=== PATIENT | female | born 1935 | race Caucasian/White ===

== ENCOUNTER 2020-05-04 08:55 | Outpatient (CLI) | payer MEDICARE, SELFPAY ==
[2020-05-04 09:17] LABS: Basophils Absolute Auto 0.1 K/mm3 (0.0-0.1); Basophils Percent Auto 0.9 % (0.2-1.2); Eosinophils Absolute Auto 0.1 K/mm3 (0-0.3); Eosinophils Percent Auto 1.6 % (0-4.4); Hematocrit 40.7 % (37.0-47.0); Hemoglobin 13.5 g/dL (12.0-15.0); Immature Granulocyte Absolute 0.01 K/mm3 (0.00-0.031); Immature Granulocyte Percent A 0.2 % (0-0.5); Lymphocytes Absolute Auto 1.86 K/mm3 (0.9-3.2); Lymphocytes Percent Auto 33.1 % (18.3-44.2); Mean Corpuscular HGB Conc 33.2 g/dl (32-36); Mean Corpuscular Hemoglobin 30.1 pg (26-34); Mean Corpuscular Volume 90.8 fl (80-100); Mean Platelet Volume 11.1 fl (7.4-10.4); Monocytes Absolute Auto 0.5 K/mm3 (0.1-0.6); Monocytes Percent Auto 8.4 % (2.6-8.5); Neutrophils Absolute Auto 3.1 K/mm3 (1.3-6.7); Neutrophils Percent Auto 55.8 % (45.5-73.1); Platelet Count Result 245 k/mm3 (150-375); Red Blood Count 4.48 M/mm3 (4.2-5.4); Red Cell Distribution Width 12.2 % (11.5-14.5); White Blood Count 5.6 K/mm3 (4.5-10.0)
[2020-05-04 09:34] LABS: Alanine Aminotransferase 23 U/L (4-35); Albumin Level 4.4 g/dL (3.5-5.1); Alkaline Phosphatase 79 U/L (38-126); Anion Gap 8 mmol/L (8-16); Aspartate Amino Transferase 33 U/L (14-36); Bilirubin,Total 0.5 mg/dL (0.2-1.3); Blood Urea Nitrogen 17 mg/dL (7-17); Calcium 9.7 mg/dL (8.4-10.2); Carbon Dioxide 30 mmol/L (22-30); Chloride 99 mmol/L (98-107); Cholesterol 166 mg/dL (0-200); Estimated Glomerular Filt Rate 53; Glucose 102 mg/dL (65-105); HDL Direct 70 mg/dL; Potassium 4.1 mmol/L (3.4-5.0); Sodium 137 mmol/L (137-145); Triglycerides 141 mg/dL (<150)
[2020-05-04 09:45] LABS: LDL Cholesterol Direct 71 mg/dL
== END 2020-05-04 08:56 | disposition home or self-care (01) ==
PROVIDERS: PCP Internal Medicine; Visit Provider Nurse Practitioner
DX: E78.00 Pure hypercholesterolemia, unspecified (principal); I10 Essential (primary) hypertension; E03.9 Hypothyroidism, unspecified
CPT/HCPCS: 36415; 80053; 80061; 84443; 85025

== ENCOUNTER 2020-06-20 09:31 | Outpatient (CLI) | payer MEDICARE, SELFPAY ==
[2020-06-20 10:00] LABS: Anion Gap 9 mmol/L (8-16); Blood Urea Nitrogen 17 mg/dL (7-17); Calcium 9.5 mg/dL (8.4-10.2); Carbon Dioxide 31 mmol/L (22-30); Chloride 102 mmol/L (98-107); Estimated Glomerular Filt Rate 60; Glucose 98 mg/dL (65-105); Potassium 3.9 mmol/L (3.4-5.0); Sodium 142 mmol/L (137-145)
== END 2020-06-20 09:32 | disposition home or self-care (01) ==
PROVIDERS: PCP Internal Medicine; Visit Provider Nurse Practitioner
DX: R94.4 Abnormal results of kidney function studies (principal)
CPT/HCPCS: 36415; 80048

== ENCOUNTER 2020-07-25 10:27 | Outpatient (CLI) | payer MEDICARE, SELFPAY ==
[2020-07-25 11:14] LABS: Anion Gap 7 mmol/L (8-16); Blood Urea Nitrogen 14 mg/dL (7-17); Calcium 9.4 mg/dL (8.4-10.2); Carbon Dioxide 30 mmol/L (22-30); Chloride 102 mmol/L (98-107); Estimated Glomerular Filt Rate 60; Glucose 116 mg/dL (65-105); Potassium 3.6 mmol/L (3.4-5.0); Sodium 139 mmol/L (137-145)
== END 2020-07-25 10:28 | disposition home or self-care (01) ==
LOC: ANHLAB 10:28
PROVIDERS: PCP Internal Medicine; Visit Provider Nurse Practitioner
DX: R94.4 Abnormal results of kidney function studies (principal)
CPT/HCPCS: 36415; 80048

== ENCOUNTER → 2020-10-28 05:23 | Outpatient (CLI) | payer MEDICARE, SELFPAY ==
[2020-10-28 19:34] LABS: SARS-CoV-2 RNA PCR Negative
== END ==
PROVIDERS: PCP Internal Medicine; Visit Provider Internal Medicine Gastroenterology
DX: Z01.812 Encounter for preprocedural laboratory examination (principal); Z20.822 Contact with and (suspected) exposure to COVID-19
CPT/HCPCS: C9803; U0003; U0005

== ENCOUNTER 2020-10-31 00:27 | Day surgery (SDC) | payer MEDICARE, SELFPAY ==
[2020-10-17 14:00] VITALS: BMI 25.7
[2020-10-31 08:58] VITALS: BP 148/71; PULSE 74; RESP 14; TEMP 36.4; O2SAT 96; BMI 25.6
[2020-10-31] MEDS: LACTATED RINGERS 1,000 ML 150 ML IV CONT (09:19)
--- NOTE | 2020-10-31 09:49 | WPDANESEPPF ---
Anes - Initial Pre Proc Eval Procedure: Operation Date: 10/31/20 10:00 Proposed Procedures p Esophagogastroduodenoscopy & Screening Colonoscopy - Deon Oswald MD Date/Time: 10/31/20 09:49 Surgeon: Deon Oswald MD Pre Op Diagnosis: Epigastric Pain, Neoplasm Screening Patient Data Age: 85 Gender: F Height: 5 ft 3 in Weight: 65.7 kg Last Vital Signs Temp 97.5 F L 10/31/20 08:58 Pulse 74 10/31/20 08:58 Resp 14 10/31/20 08:58 BP 148/71 H 10/31/20 08:58 Pulse Ox 96 10/31/20 08:58 Allergies Allergy/AdvReac Type Severity Reaction Status Date / Time cefdinir Allergy Unknown Unknown Verified 10/31/20 09:23 Home Medications Medication Instructions Recorded Confirmed Type acetaminophen 500 mg capsule 1,000 mg PO .QD cap 06/09/19 10/17/20 History aspirin 325 mg tablet 325 mg PO BID 06/09/19 10/17/20 History fluticasone propionate 50 2 spray NASAL DAILY PRN 06/09/19 10/17/20 History mcg/actuation nasal spray,suspension omega-3 fatty acids 500 mg PO DAILY 05/11/20 06/30/20 History levothyroxine 88 mcg tablet 88 mcg PO DAILY #90 tablet 05/22/20 10/17/20 Rx simvastatin 20 mg tablet 20 mg PO DAILY #90 tablet 05/22/20 10/17/20 Rx amlodipine 2.5 mg tablet 2.5 mg PO DAILY #90 tablet 07/25/20 10/17/20 Rx pantoprazole 20 mg tablet,delayed See Rx Instructions .ROUTE 08/24/20 10/17/20 Rx release .COMPLEX #90 tablet hydrochlorothiazide 25 mg tablet 25 mg PO DAILY #90 tablet 09/01/20 10/17/20 Rx sodium,potassium,mag sulfates 17.5 See Rx Instructions PO .COMPLEX 09/27/20 Rx gram-3.13 gram-1.6 gram oral soln #354 ml calcitriol 0.25 mcg capsule 0.25 mcg PO DAILY #90 cap 10/03/20 10/17/20 Rx Cbd BYMOUTH 10/17/20 History cetirizine [Zyrtec] 10 mg PO DAILY 10/17/20 10/17/20 History potassium mg 10/17/20 History Patient hx anesthesia problems: none Family hx anesthesia problems: none PMFSH Past Medical History Medical History (Updated 08/22/20 @ 13:51 by Ariana Carrera NP) HLD (hyperlipidemia) HTN (hypertension) Hypothyroidism Peripheral vascular disease Surgical History Surgical History (Updated 06/09/19 @ 08:21 by Sandy John CMA) Hx of cholecystectomy Family History Family History (Updated 06/09/19 @ 08:23 by Sandy John CMA) Father Family history of emphysema Sibling Hypertension Seizure disorder Mother Cerebrovascular accident Social History Social History Smoking status: Never smoker Alcohol intake: never Living arrangements: alone Gender identity (if verbalized by the patient): Female Spiritual care concerns: No Anes - Eval Final PreProcedure Day of Procedure 10/31/20 09:49 Patient weight: normal Heart: regular rate and rhythm Lungs: clear to auscultation Airway: Mallampati scale class II Neurological: alert and oriented Last oral intake: >/= 8 hours ASA classification: III Emergent: no Anesthetic plan: proceed Anesthesia type and monitoring: general GIVS and standard monitoring Informed Consent: The patient's anesthetic plan and its attendant risks and benefits were discussed with the patient/family/POA. Questions were solicited and answers provided to the satisfaction of the patient/family/POA.
--- NOTE | 2020-10-31 10:48 | PM.HPGS ---
History of Present Illness History of Present Illness Consent: Risks, benefits, and alternatives have been discussed and questions answered. Patient agrees to proceed with procedure. Chief complaint: Epigastric Pain, Neoplasm Screening Narrative: Clarissa Soliz is a 85 year old female with colon polyp in 2014, also dyspepsia and epigastric pain after eating Review of Systems Constitutional: Constitutional: Denies headache(s) and Denies weakness Eyes: Eyes: Denies blurry vision ENT: Reports Normal hearing present, Denies headache(s) and Denies neck pain Cardiovascular: Cardiovascular: Denies chest pain and Denies dyspnea Respiratory: Respiratory: Denies dyspnea Gastrointestinal: Gastrointestinal: Reports no additional gastrointestinal complaints Genitourinary: Genitourinary: Denies dysuria Musculoskeletal: Musculoskeletal: Denies neck pain Integumentary/Breasts: Skin/Breast: Denies dry skin Neurologic: Reports Normal hearing present, Denies headache(s) and Denies weakness Psychiatric: Psychiatric: Denies anxiety Endocrine: Endocrine: Denies change in body appearance Hematologic/Lymphatic: Hematologic/Lymphatic: Denies easy bleeding Allergic/Immunologic: Allergic/Immunologic: Denies urticaria PMF Past Medical History Medical History (Updated 08/22/20 @ 13:51 by Ariana Carrera NP) HLD (hyperlipidemia) HTN (hypertension) Hypothyroidism Peripheral vascular disease Surgical History Surgical History (Updated 06/09/19 @ 08:21 by Sandy John CMA) Hx of cholecystectomy Family History Family History (Updated 06/09/19 @ 08:23 by Sandy John CMA) Father Family history of emphysema Sibling Hypertension Seizure disorder Mother Cerebrovascular accident Social History Social History Smoking status: Never smoker Alcohol intake: never Living arrangements: alone Gender identity (if verbalized by the patient): Female Spiritual care concerns: No Meds Home Medications and Allergies Home Medications Medication Instructions Recorded Confirmed Type acetaminophen 500 mg capsule 1,000 mg PO .QD cap 06/09/19 10/17/20 History aspirin 325 mg tablet 325 mg PO BID 06/09/19 10/17/20 History fluticasone propionate 50 2 spray NASAL DAILY PRN 06/09/19 10/17/20 History mcg/actuation nasal spray,suspension omega-3 fatty acids 500 mg PO DAILY 05/11/20 06/30/20 History levothyroxine 88 mcg tablet 88 mcg PO DAILY #90 tablet 05/22/20 10/17/20 Rx simvastatin 20 mg tablet 20 mg PO DAILY #90 tablet 05/22/20 10/17/20 Rx amlodipine 2.5 mg tablet 2.5 mg PO DAILY #90 tablet 07/25/20 10/17/20 Rx pantoprazole 20 mg tablet,delayed See Rx Instructions .ROUTE 08/24/20 10/17/20 Rx release .COMPLEX #90 tablet hydrochlorothiazide 25 mg tablet 25 mg PO DAILY #90 tablet 09/01/20 10/17/20 Rx sodium,potassium,mag sulfates 17.5 See Rx Instructions PO .COMPLEX 09/27/20 Rx gram-3.13 gram-1.6 gram oral soln #354 ml calcitriol 0.25 mcg capsule 0.25 mcg PO DAILY #90 cap 10/03/20 10/17/20 Rx Cbd BYMOUTH 10/17/20 History cetirizine [Zyrtec] 10 mg PO DAILY 10/17/20 10/17/20 History potassium mg 10/17/20 History Allergies Allergy/AdvReac Type Severity Reaction Status Date / Time cefdinir Allergy Unknown Unknown Verified 10/31/20 09:23 Vital Signs Vital Signs - 24 hr 10/31/20 08:58 Temperature 97.5 F L Pulse Rate 74 Respiratory Rate 14 Blood Pressure 148/71 H Pulse Oximetry 96 Exam Const: General: comfortable and no acute distress HENMT: General nose exam: Normal nares present Eyes: General: appearance normal, both eyes and all related structures Neck: Neck: no JVD Resp: Auscultation: clear to auscultation bilaterally Cardio: Rate: regular rate Rhythm: regular rhythm GI: Inspection: non-distended GI Palp: Yes Soft to palpation Skin: General skin exam: normal color Neuro: General: gait normal Speech: normal speech Extrem: General: normal to inspection Psych:
[2020-10-31] MEDS: BENZOCAINE (*SP) 60 ML SPRAY CAN (HURRICAINE) 1 SPRAY MUCOUS MEM (10:51)
[2020-10-31 11:20] VITALS: BP 119/60; PULSE 67; RESP 22; O2SAT 100
[2020-10-31 11:30] VITALS: BP 133/73; PULSE 71; RESP 20; O2SAT 100
[2020-10-31 11:40] VITALS: BP 129/61; PULSE 70; RESP 20; O2SAT 100
== END 2020-10-31 12:05 | disposition home or self-care (01) ==
PROVIDERS: PCP Internal Medicine; Visit Provider Internal Medicine Gastroenterology
PROC: 0DJ08ZZ Inspection of Upper Intestinal Tract, Via Natural or Artificial Opening Endoscopic (ICD-10-PCS; CPT 43235; principal; 2020-10-31 10:00)
DX: Z12.11 Encounter for screening for malignant neoplasm of colon (principal); K57.30 Diverticulosis of large intestine without perforation or abscess without bleeding; K64.8 Other hemorrhoids; Z86.010 Personal history of colon polyps; K44.9 Diaphragmatic hernia without obstruction or gangrene; K29.50 Unspecified chronic gastritis without bleeding; I10 Essential (primary) hypertension; E78.5 Hyperlipidemia, unspecified; E03.9 Hypothyroidism, unspecified; I73.9 Peripheral vascular disease, unspecified; Z79.82 Long term (current) use of aspirin
CPT/HCPCS: 43239; G0105; 87081; 88305; C9803; J2704; J7120; U0003; U0005

== ENCOUNTER 2021-06-27 14:03 | Emergency (ER) | payer MEDICARE, SELFPAY ==
[2021-06-27 14:15] VITALS: BP 147/98; PULSE 82; RESP 16; TEMP 36.1; O2SAT 98
--- NOTE | 2021-06-27 14:44 | ED.GENADULT ---
HPI - General Adult General Chief complaint: Dizziness Stated complaint: dizziness Source: patient Mode of arrival: ambulatory Limitations: no limitations History of Present Illness HPI narrative: Patient is a an 85-year-old female who presents to the urgent care via POV for evaluation of dizziness that has been present for approximately 3 days. She states symptoms occurred upon awakening. Denies taking OTC meds for symptoms. Symptoms are worse at night. Been up and moving around throughout the day improves symptoms. She does state symptoms have been improving over the past 24 hours. Denies a history of renal insufficiency, and diabetes mellitus Related Data Home Medications Medication Instructions Recorded Confirmed acetaminophen 500 mg capsule 1,000 mg PO .QD cap 06/09/19 10/17/20 aspirin 325 mg tablet 325 mg PO BID 06/09/19 10/17/20 omega-3 fatty acids 500 mg PO DAILY 05/11/20 06/30/20 Cbd BYMOUTH 10/17/20 cetirizine [Zyrtec] 10 mg PO DAILY 10/17/20 10/17/20 potassium mg 10/17/20 Allergies Allergy/AdvReac Type Severity Reaction Status Date / Time cefdinir Allergy Unknown Unknown Verified 06/27/21 14:14 Review of Systems Review of Systems: Pertinent negatives: Head trauma, fever, chills, sweats, change in appetite, poor p.o. intake, headache, dizziness, lymphadenopathy, vision changes, swelling, erythema, weakness, syncope, LOC, urinary symptoms, seizure activity, memory loss, paresthesias, abdominal pain, nausea, vomiting, diarrhea, constipation, shortness of breath, cough, chest pain, and heart palpitations/murmurs. [facility] Past Medical History Medical History HLD (hyperlipidemia) HTN (hypertension) Hypothyroidism Peripheral vascular disease Surgical History Surgical History Hx of cholecystectomy Family History Family History Father Family history of emphysema Sibling Hypertension Seizure disorder Mother Cerebrovascular accident Social History Social History Smoking status: Never smoker Alcohol intake: never Gender identity (if verbalized by the patient): Female Spiritual care concerns: No Comments I have reviewed and agree with the patient's past medical, surgical, social, and family hx as documented by the RN. There is no relevant family history pertinent to the presenting complaint. Exam Narrative: GENERAL: Well-appearing, well-nourished, and in no acute distress. HEAD: Normocephalic, atraumatic. No sinus tenderness or facial swelling appreciated. No evidence of ear bleeding or drainage from ears. No evidence of foreign bodies. No signs of basilar skull fracture: no hemotympanum, morris's sign, or raccoon's eyes. EYES: PERRLA and EOMI. No evidence of erythema, swelling, or drainage. ENT: Bilateral external ears and ear canals normal. Bilateral TMs are normal. No TM perforation. Nares clear, no septal hematoma or epistaxis. Bilateral turbinates without erythema/ swelling. Mucous membranes moist and pink. Uvula is midline without erythema and swelling. No evidence of petechial rash, cobblestoning, lesions, ulcers, erythema, swelling, exudates, peritonsillar abscess, tenting, or drooling. Breath odor and voice normal. NECK: Supple. No injury or pain appreciated. No lymphadenopathy or nuchal rigidity appreciated. CHEST: Bilateral lung hatch are clear to auscultation. No respiratory distress. No evidence of cough or pleuritic cp upon examination. No evidence of deformity, flail chest, hematomas, contusions, lacerations. HEART: Regular rate and rhythm. No murmur, gallop, or rub heard. ABDOMEN: Soft, nontender, nondistended, normal active bowel sounds in all quadrants. No guarding. No rebound tenderness. No pulsatile or palpable
== END 2021-06-27 15:10 | disposition home or self-care (01) ==
PROVIDERS: Emergency Provider Nurse Practitioner Family; PCP Internal Medicine
DX: N30.01 Acute cystitis with hematuria (principal); R42 Dizziness and giddiness; I10 Essential (primary) hypertension; E78.5 Hyperlipidemia, unspecified; E03.9 Hypothyroidism, unspecified
CPT/HCPCS: 81003; 87086; 87088; 99213; G0463

== ENCOUNTER 2021-08-20 14:04 | Emergency (ER) | payer MEDICARE, SELFPAY ==
[2021-08-20 14:15] VITALS: BP 124/95; PULSE 93; RESP 16; TEMP 37.8; O2SAT 98
--- NOTE | 2021-08-20 14:23 | ED.URI ---
HPI - URI/Sore Throat General Chief Complaint: Upper Respiratory Infection Stated Complaint: Congestion Time Seen by Provider: 08/20/21 14:24 Source: patient, RN notes reviewed and old records reviewed Mode of arrival: ambulatory Limitations: no limitations History of Present Illness HPI Narrative: 85-year-old female presents to the [facility] with complaints of nasal congestion and a frontal headache for 2 days. Has taken ibuprofen yesterday. No other treatment prior to arrival. Reports that she had Covid exactly 1 year ago. Is not Covid vaccinated, states that she had Covid so she is resistant. Flu vaccinated MD elicited complaint: nasal congestion Related Data Home Medications Medication Instructions Recorded Confirmed acetaminophen 500 mg capsule 1,000 mg PO .QD cap 06/09/19 08/20/21 omega-3 fatty acids 500 mg PO DAILY 05/11/20 08/20/21 cetirizine [Zyrtec] 10 mg PO DAILY 10/17/20 08/20/21 potassium 99 mg PO DAILY 10/17/20 08/20/21 Allergies Allergy/AdvReac Type Severity Reaction Status Date / Time cefdinir Allergy Unknown Unknown Verified 08/20/21 14:40 Review of Systems Review of Systems: All systems reviewed & are unremarkable except as noted in HPI and below Constitutional: Constitutional: Reports no additional constitutional complaints, Denies chills, Denies fever(s) and Denies headache(s) Eyes: Eyes: Reports no additional eye complaints ENT: Reports as per HPI, Denies vertigo, Denies dizziness, Denies headache(s), Reports nasal congestion, Reports nasal discharge, Reports sinus pain, Reports sinus pressure and Denies sore throat Cardiovascular: Cardiovascular: Reports no additional cardiovascular complaints, Denies chest pain, Denies syncope, Denies rapid heart rate and Denies dyspnea Respiratory: Respiratory: Reports no additional respiratory complaints, Denies cough, Denies dyspnea and Denies wheezing Gastrointestinal: Gastrointestinal: Reports no additional gastrointestinal complaints, Denies abdominal pain, Denies diarrhea, Denies nausea and Denies vomiting Musculoskeletal: Musculoskeletal: Reports no additional musculoskeletal complaints and Denies numbness Integumentary/Breasts: Skin/Breast: Reports system reviewed and no additional complaints, except as docu Neurologic: Reports system reviewed and no additional complaints, except as documented, Denies vertigo, Denies dizziness, Denies syncope, Denies headache(s), Denies focal weakness and Denies numbness Psychiatric: Psychiatric: Reports no additional psychiatric complaints Allergic/Immunologic: Allergic/Immunologic: Reports no additional allergic/immunologic complaints and Denies wheezing PMFSH Past Medical History Medical History HLD (hyperlipidemia) HTN (hypertension) Hypothyroidism Peripheral vascular disease Surgical History Surgical History Hx of cholecystectomy Family History Family History Father Family history of emphysema Sibling Hypertension Seizure disorder Mother Cerebrovascular accident Social History Social History Smoking status: Never smoker Alcohol intake: never Gender identity (if verbalized by the patient): Female Spiritual care concerns: No Comments At the time of my signature, I reviewed and agree with the nursing past medical, surgical, social, and family history. There is no relevant family history pertinent to the patient complaint. Exam Const: General: cooperative, healthy appearing, no acute distress, well developed and alert Nutritional Appearance: well nourished Orientation/consciousness: patient oriented x3 Limitations: no limitations HENMT: Head: normal to inspection Ears: external ears normal, TM's normal bilaterally and EAC's normal Throat: uvula midline Eyes: Conjunctivae: conj
== END 2021-08-20 14:50 | disposition home or self-care (01) ==
PROVIDERS: Emergency Provider Nurse Practitioner; PCP Internal Medicine
DX: U07.1 COVID-19 (principal); E78.5 Hyperlipidemia, unspecified; I10 Essential (primary) hypertension; E03.9 Hypothyroidism, unspecified; I73.9 Peripheral vascular disease, unspecified
CPT/HCPCS: 87426; 87804; 99213; C9803; G0463

== ENCOUNTER 2021-10-08 14:50 | Outpatient (CLI) | payer MEDICARE, SELFPAY ==
[2021-10-08 15:21] LABS: Basophils Absolute Auto 0.1 K/mm3 (0.0-0.1); Basophils Percent Auto 0.8 % (0.2-1.2); Eosinophils Absolute Auto 0.1 K/mm3 (0-0.3); Eosinophils Percent Auto 1.4 % (0-4.4); Hematocrit 45.1 % (37.0-47.0); Immature Granulocyte Absolute 0.02 K/mm3 (0.00-0.031); Immature Granulocyte Percent A 0.3 % (0-0.5); Lymphocytes Absolute Auto 2.58 K/mm3 (0.9-3.2); Lymphocytes Percent Auto 36.5 % (18.3-44.2); Mean Corpuscular HGB Conc 33.3 g/dl (32-36); Mean Corpuscular Hemoglobin 32.1 pg (26-34); Mean Corpuscular Volume 96.4 fl (80-100); Mean Platelet Volume 10.8 fl (7.4-10.4); Monocytes Absolute Auto 0.4 K/mm3 (0.1-0.6); Monocytes Percent Auto 5.5 % (2.6-8.5); Neutrophils Absolute Auto 3.9 K/mm3 (1.3-6.7); Neutrophils Percent Auto 55.5 % (45.5-73.1); Platelet Count Result 229 k/mm3 (150-375); Red Blood Count 4.68 M/mm3 (4.2-5.4); Red Cell Distribution Width 12.3 % (11.5-14.5); White Blood Count 7.1 K/mm3 (4.5-10.0)
[2021-10-08 15:32] LABS: Alanine Aminotransferase 28 U/L (4-35); Albumin Level 4.8 g/dL (3.5-5.1); Alkaline Phosphatase 83 U/L (38-126); Anion Gap 8 mmol/L (8-16); Aspartate Amino Transferase 42 U/L (14-36); Bilirubin,Total 0.7 mg/dL (0.2-1.3); Blood Urea Nitrogen 15 mg/dL (7-17); Calcium 9.7 mg/dL (8.4-10.2); Carbon Dioxide 28 mmol/L (22-30); Chloride 98 mmol/L (98-107); Cholesterol 196 mg/dL (0-200); Estimated Glomerular Filt Rate 60; Glucose 112 mg/dL (65-110); HDL Direct 64 mg/dL; Magnesium 2.1 mg/dL (1.6-2.3); Potassium 3.7 mmol/L (3.4-5.0); Sodium 134 mmol/L (137-145); Triglycerides 233 mg/dL (<150)
[2021-10-08 15:43] LABS: LDL Cholesterol Direct 85 mg/dL
[2021-10-08 16:38] LABS: Folic Acid > 20.0 ng/mL (2.76->20)
== END 2021-10-08 14:51 | disposition home or self-care (01) ==
PROVIDERS: PCP Internal Medicine; Visit Provider Nurse Practitioner
DX: E03.9 Hypothyroidism, unspecified (principal); I10 Essential (primary) hypertension; R25.2 Cramp and spasm
CPT/HCPCS: 36415; 80053; 80061; 82607; 82746; 83735; 84443; 85025

== ENCOUNTER 2022-11-25 10:14 | Outpatient (CLI) | payer MEDICARE, SELFPAY ==
[2022-11-25 13:48] LABS: Basophils Absolute Auto 0.1 K/mm3 (0.0-0.1); Basophils Percent Auto 1.3 % (0.2-1.2); Eosinophils Absolute Auto 0.1 K/mm3 (0-0.3); Hematocrit 43.9 % (37.0-47.0); Hemoglobin 14.5 g/dL (12.0-15.0); Immature Granulocyte Absolute 0.01 K/mm3 (0.00-0.031); Immature Granulocyte Percent A 0.2 % (0-0.5); Lymphocytes Absolute Auto 1.85 K/mm3 (0.9-3.2); Lymphocytes Percent Auto 34.2 % (18.3-44.2); Mean Corpuscular Hemoglobin 32.5 pg (26-34); Mean Corpuscular Volume 98.4 fl (80-100); Mean Platelet Volume 12.3 fl (7.4-10.4); Monocytes Absolute Auto 0.5 K/mm3 (0.1-0.6); Monocytes Percent Auto 9.6 % (2.6-8.5); Neutrophils Absolute Auto 2.9 K/mm3 (1.3-6.7); Neutrophils Percent Auto 52.7 % (45.5-73.1); Platelet Count Result 212 k/mm3 (150-375); Red Blood Count 4.46 M/mm3 (4.2-5.4); White Blood Count 5.4 K/mm3 (4.5-10.0)
[2022-11-25 14:01] LABS: Alanine Aminotransferase 28 U/L (6-35); Albumin Level 4.4 g/dL (3.5-5.1); Alkaline Phosphatase 71 U/L (38-126); Anion Gap 2 mmol/L (8-16); Aspartate Amino Transferase 42 U/L (14-36); Bilirubin,Total 0.7 mg/dL (0.2-1.3); Blood Urea Nitrogen 15 mg/dL (7-17); Calcium 9.4 mg/dL (8.4-10.2); Carbon Dioxide 35 mmol/L (22-30); Chloride 101 mmol/L (98-107); Cholesterol 172 mg/dL (0-200); Estimated Glomerular Filt Rate > 60; Glucose 86 mg/dL (65-110); HDL Direct 73 mg/dL; Potassium 3.7 mmol/L (3.4-5.0); Sodium 138 mmol/L (137-145); Triglycerides 106 mg/dL (<150)
[2022-11-25 14:13] LABS: LDL Cholesterol Direct 72 mg/dL
== END 2022-11-25 10:15 | disposition home or self-care (01) ==
LOC: ANHGOSHLAB 10:16
PROVIDERS: PCP Internal Medicine; Visit Provider Nurse Practitioner
DX: E03.9 Hypothyroidism, unspecified (principal); E78.5 Hyperlipidemia, unspecified; I10 Essential (primary) hypertension; R94.4 Abnormal results of kidney function studies
CPT/HCPCS: 36415; 80053; 80061; 84443; 85025

== ENCOUNTER 2023-02-21 13:22 | Outpatient (CLI) | payer MEDICARE, SELFPAY ==
[2023-02-21 18:20] LABS: Magnesium 2.2 mg/dL (1.6-2.3)
== END 2023-02-21 13:23 | disposition home or self-care (01) ==
LOC: ANHGOSHLAB 13:23
PROVIDERS: PCP Internal Medicine; Visit Provider Nurse Practitioner
DX: G25.81 Restless legs syndrome (principal); G47.61 Periodic limb movement disorder; D64.9 Anemia, unspecified; Z13.0 Encounter for screening for diseases of the blood and blood-forming organs and certain disorders involving the immune mechanism; E61.1 Iron deficiency; R79.89 Other specified abnormal findings of blood chemistry
CPT/HCPCS: 36415; 82728; 83735

== ENCOUNTER 2023-11-26 12:33 | Outpatient (CLI) | payer MEDICARE, SELFPAY ==
[2023-11-26 13:15] LABS: Basophils Absolute Auto 0.1 K/mm3 (0.0-0.1); Basophils Percent Auto 0.8 % (0.2-1.2); Eosinophils Absolute Auto 0.1 K/mm3 (0-0.3); Eosinophils Percent Auto 1.2 % (0-4.4); Hematocrit 43.3 % (37.0-47.0); Hemoglobin 14.3 g/dL (12.0-15.0); Immature Granulocyte Absolute 0.02 K/mm3 (0.00-0.031); Immature Granulocyte Percent A 0.3 % (0-0.5); Lymphocytes Absolute Auto 2.24 K/mm3 (0.9-3.2); Lymphocytes Percent Auto 37.9 % (18.3-44.2); Mean Corpuscular Hemoglobin 32.6 pg (26-34); Mean Corpuscular Volume 98.9 fl (80-100); Mean Platelet Volume 12.1 fl (7.4-10.4); Monocytes Absolute Auto 0.5 K/mm3 (0.1-0.6); Monocytes Percent Auto 7.6 % (2.6-8.5); Neutrophils Absolute Auto 3.1 K/mm3 (1.3-6.7); Neutrophils Percent Auto 52.2 % (45.5-73.1); Platelet Count Result 205 k/mm3 (150-375); Red Blood Count 4.38 M/mm3 (4.2-5.4); Red Cell Distribution Width 11.9 % (11.5-14.5); White Blood Count 5.9 K/mm3 (4.5-10.0)
[2023-11-26 13:28] LABS: Alanine Aminotransferase 24 U/L (6-35); Albumin Level 4.7 g/dL (3.5-5.1); Anion Gap 6 mmol/L (4-12); Aspartate Amino Transferase 31 U/L (14-36); Bilirubin,Total 0.5 mg/dL (0.2-1.3); Blood Urea Nitrogen 18 mg/dL (7-17); Calcium 9.9 mg/dL (8.4-10.2); Carbon Dioxide 29 mmol/L (22-30); Chloride 103 mmol/L (98-107); Estimated Glomerular Filt Rate 59; Glucose 97 mg/dL (65-110); Potassium 3.7 mmol/L (3.4-5.0); Sodium 138 mmol/L (137-145)
[2023-11-26 13:29] LABS: Alkaline Phosphatase 65 U/L (38-126); Cholesterol 173 mg/dL (0-200); HDL Direct 76 mg/dL; Triglycerides 185 mg/dL (<150)
[2023-11-26 13:39] LABS: LDL Cholesterol Direct 75 mg/dL
== END 2023-11-26 12:34 | disposition home or self-care (01) ==
PROVIDERS: PCP Internal Medicine; Visit Provider Nurse Practitioner
DX: R94.4 Abnormal results of kidney function studies (principal); I10 Essential (primary) hypertension; E78.5 Hyperlipidemia, unspecified; E03.9 Hypothyroidism, unspecified
CPT/HCPCS: 36415; 80053; 80061; 84443; 85025

== ENCOUNTER 2024-05-21 13:25 | Emergency (ER) | payer MEDICARE, SELFPAY ==
--- NOTE | ~2024-05-21 | XR_ITS ---
XR pelvis 1-2V 05/21/2024 14:01 Indication: Status post fall on buttocks. Procedure: AP pelvis Comparison: No prior studies for comparison. Findings: Pelvic rings are intact. There is lower lumbar spondylosis. No fracture or traumatic malali gnment. Sacral foramen are symmetric. Impression: 1: No acute bone or joint abnormality. Reviewed, dictated and finalized at location B. Impression: 1: No acute bone or joint abnormality.
[2024-05-21 13:40] VITALS: BP 144/65; PULSE 77; RESP 19; TEMP 37; O2SAT 97
--- NOTE | 2024-05-21 13:52 | ED.FALL ---
HPI - Fall General Chief Complaint: Fall Stated Complaint: FALL Time Seen by Provider: 05/21/24 13:52 Source: patient, RN notes reviewed and old records reviewed Mode of arrival: ambulatory Limitations: no limitations and physical limitation (Uses walker) History of Present Illness HPI Narrative: 88-year-old patient who uses walker at baseline presents accompanied by her daughter. Reportedly, 1 week ago was working in her flower bed, lost balance and fell, landing on her buttocks. She was able to get herself up. Denies other injury and trauma, including head trauma. She presents today because she continues to have pain to the right buttock. She has been having difficulty sleeping secondary to the pain. She reports pain is worse with standing and lying down, relieved by sitting. She has occasionally been taking tramadol without much relief. Pain has not affected her ability to walk on her own with the assistance of a walker Related Data Home Medications Medication Instructions Recorded Confirmed acetaminophen 500 mg capsule 1,000 mg PO .QD 06/09/19 05/21/24 cetirizine 10 mg tablet (Zyrtec) 10 mg PO DAILY 10/17/20 05/21/24 ascorbate calcium (vitamin C) 500 1 g PO DAILY 09/27/21 05/21/24 mg tablet magnesium hydroxide 400 mg (170 mg 400 mg PO DAILY 01/10/22 05/21/24 magnesium) chewable tablet potassium 99 mg tablet 198 mg PO DAILY 01/10/22 05/21/24 cholecalciferol (vitamin D3) 50 50 mcg PO DAILY 06/24/23 05/21/24 mcg (2,000 unit) capsule omega-3 fatty acids 2,500 mg PO DAILY 06/24/23 05/21/24 Allergies Allergy/AdvReac Type Severity Reaction Status Date / Time cefdinir Allergy Unknown Unknown Verified 05/21/24 13:27 Review of Systems Review of Systems: All systems reviewed & are unremarkable except as noted in HPI and below Constitutional: Constitutional: Reports no additional constitutional complaints ENT: Reports system reviewed and no additional complaints, except as documented Cardiovascular: Cardiovascular: Reports no additional cardiovascular complaints Respiratory: Respiratory: Reports no additional respiratory complaints Gastrointestinal: Gastrointestinal: Reports no additional gastrointestinal complaints Musculoskeletal: Musculoskeletal: Reports no additional musculoskeletal complaints and Reports as per HPI [facility] Past Medical History Medical History Anxiety and depression HLD (hyperlipidemia) HTN (hypertension) Hypothyroidism Peripheral vascular disease Surgical History Surgical History History of hysterectomy, supracervical (12/11/15) supracervical laparoscopic hysterectomy with bilateral salpingo-oophorectomy - uterine prolaspe- Extensive Adenomyosis Hx of cholecystectomy (05/28/10) Family History Family History Father Family history of emphysema Sibling Hypertension Seizure disorder Mother Cerebrovascular accident Social History Social History (Updated 11/26/23 @ 11:36 by Ro Gilliland CMA) Smoking status: Never smoker Alcohol intake: never Substance use: never Substance use type: does not use Do You Feel Safe in your Home?: Yes Lack of Transportation: No Lack of Food: Never True Current Housing: I Have Housing Concerned About Future Housing: No Difficulty Paying Gas/Electric Bills: No Difficulty Paying for Meds: No Currently Unemployed: No Education: High School Diploma/GED Difficulty w/ Childcare or Family Care: No Living arrangements: other Additional living arrangements comments: Occupation/Education: retired Gender identity (if verbalized by the patient): Female Sexual Orientation (if Verbalized by the Patient): Straight or Heterosexual Spiritual care concerns: No Comments At the time of my signature, I reviewed and agree with the nursing past medical, surgical, social, and family history. There is no relevant family history pertinent to the patient complaint. Exam Const: General: cooperative, no acute distress, alert and awake Orientation/consciousness: oriented to person, oriented to place and oriented to time Limitations: physical limitations (Using walker) HENMT: Head: normal to inspection Resp: Effort & Inspection: normal respiratory effort and able to speak in complete sentences Auscultation: clear to auscultation bilaterally, no crackles, no rales, no rhonchi and no wheezes Cardio: Palpation: normal PMI Rate: regular rate Rhythm: regular rhythm Heart sounds: S1 normal heart sound present and S2 normal heart sound present Back/Spine/Pelvis: Other: Extreme kyphosis Back/spine/pelvis image: 1. point tenderness Skin: General skin exam: normal color and no ecchymosis Neuro: General: oriented to person, oriented to place and oriented to time Cranial nerves: Yes CN's II-XII intact bilaterally Psych: Appearance: grossly normal Thought process: Normal thought process present Insight: Good insight present (Psych) Judgement: Good judgement present (Psych) Course Course Level of Care: Express Care Visit Vital Signs Vital signs: Vital Signs Temperature 98.6 F 05/21/24 13:40 Pulse Rate 77 05/21/24 13:40 Respiratory Rate 19 05/21/24 13:40 Blood Pressure 144/65 H 05/21/24 13:40 Pulse Oximetry 97 05/21/24 13:40 Oxygen Delivery Room Air 05/21/24 13:40 Temperature 98.6 F 05/21/24 13:40 Pulse Rate 77 05/21/24 13:40 Respiratory Rate 19 05/21/24 13:40 Blood Pressure 144/65 H 05/21/24 13:40 Pulse Oximetry 97 05/21/24 13:40 Oxygen Delivery Room Air 05/21/24 13:40 Reviewed MDM - Fall MDM Narrative Medical decision making narrative: Patient with same level fall onto buttocks 1 week ago, able to walk. Concerned about continuing pain. Normal pelvic x-ray. Home care measures discussed. Follow with primary care provider. Emergency department for new or worse symptoms. Discharge instructions reviewed with patient, as well as provided in writing per nursing staff. The instructions also include specific and strict return/GO TO THE ER as well as f/u information. All questions have been answered, and the patient deny any further questions with discharge and discharge plan. Some parts of this dictation were generated by voice recognition software and may contain typographical and/or grammatical inaccuracies. Differential Diagnosis Differential diagnosis: Likely other (Pelvic fracture, musculoskeletal pain, fall) Medical Records Attestation: I reviewed the patient's medical records. Imaging Data Attestation: I personally reviewed and interpreted this imaging study as follows: My impression: negative Radiologist's impression: Patient: Clarissa Soliz : 1935 MR#: [id number] Age: 88 Acct:[id number] Loc: [facility] ADM Date: 05/21/24Attending Dr: Ordering Physician: Landy Perez FNP Date of Service: 05/21/24 Procedure(s): XR pelvis 1-2V Accession Number(s): [id number] cc: Landy Perez FNP; Prasad Camacho DO~ XR pelvis 1-2V 05/21/2024 14:01 Indication: Status post fall on buttocks. Procedure: AP pelvis Comparison: No prior studies for comparison. Findings: Pelvic rings are intact. There is lower lumbar spondylosis. No fracture or traumatic malalignment. Sacral foramen are symmetric. Impression: 1: No acute bone or joint abnormality. Reviewed, dictated and finalized at location B. Dictated By: Artis Guzman MD 05/21/24 1403 Signed By: <Electronically signed by Artis Guzman MD in OV> 05/21/24 1405 Discharge Plan Discharge Clinical Impression: Pain in right buttock Patient Disposition: Home, Self-Care Condition: Stable Instructions: Antibiotic Form, Musculoskeletal Pain (ED) Additional Instructions: Follow-up with primary care provider, emergency department for new or worse symptoms. Patient Language: Amharic Prescriptions: No Action omega-3 fatty acids Capsule 2,500 mg PO DAILY acetaminophen 500 mg capsule 1,000 mg PO .QD ascorbate calcium (vitamin C) 500 mg tablet 1 g PO DAILY magnesium hydroxide 400 mg (170 mg magnesium) tablet,chewable 400 mg PO DAILY potassium 99 mg tablet 198 mg PO DAILY clobetasol 0.05 % cream 1 applic topical .see comment Qty: 60 6RF Rx Instructions: apply externally 2x/week or as needed for itching triamcinolone acetonide 0.1 % cream 1 applic topical BID Qty: 30 0RF cholecalciferol (vitamin D3) 50 mcg (2,000 unit) capsule 50 mcg PO DAILY cetirizine [Zyrtec] 10 mg Tablet 10 mg PO DAILY fluticasone propionate 50 mcg/actuation spray,suspension See Rx Instructions .ROUTE .COMPLEX Qty: 32 0RF Dose Instruction: USE 1 SPRAY IN BOTH NOSTRILS DAILY Rx Instructions: USE 1 SPRAY IN BOTH NOSTRILS DAILY ropinirole 0.5 mg tablet 0.5 mg PO QHS Qty: 100 1RF simvastatin 20 mg tablet 20 mg PO QHS Qty: 100 1RF calcitriol 0.25 mcg capsule 0.25 mcg PO DAILY Qty: 100 1RF hydrochlorothiazide 25 mg tablet 25 mg PO DAILY Qty: 100 1RF amlodipine 2.5 mg tablet 2.5 mg PO DAILY Qty: 100 1RF levothyroxine 88 mcg tablet See Rx Instructions .ROUTE .COMPLEX Qty: 100 1RF Dose Instruction: TAKE 1 TABLET BY MOUTH DAILY Rx Instructions: TAKE 1 TABLET BY MOUTH DAILY ferrous sulfate 325 mg (65 mg iron) tablet 325 mg PO DAILY Qty: 90 3RF Follow-up/Referrals: Prasad Camacho DO [Primary Care Provider] - 1 Week Time of Disposition: 14:30
== END 2024-05-21 14:35 | disposition home or self-care (01) ==
PROVIDERS: Emergency Provider Nurse Practitioner Family; PCP Internal Medicine
DX: R52 Pain, unspecified (principal); E78.5 Hyperlipidemia, unspecified; I10 Essential (primary) hypertension; E03.9 Hypothyroidism, unspecified; I73.9 Peripheral vascular disease, unspecified
CPT/HCPCS: 72170; 99213; G0463

== ENCOUNTER 2024-12-01 11:46 | Outpatient (CLI) | payer MEDICARE, SELFPAY ==
[2024-12-01 12:07] LABS: Basophils Absolute Auto 0.1 K/mm3 (0.0-0.1); Eosinophils Absolute Auto 0.1 K/mm3 (0-0.3); Hematocrit 42.6 % (37.0-47.0); Hemoglobin 13.9 g/dL (12.0-15.0); Immature Granulocyte Absolute 0.01 K/mm3 (0.00-0.031); Immature Granulocyte Percent A 0.2 % (0-0.5); Lymphocytes Absolute Auto 1.79 K/mm3 (0.9-3.2); Lymphocytes Percent Auto 30.4 % (18.3-44.2); Mean Corpuscular HGB Conc 32.6 g/dl (32-36); Mean Corpuscular Hemoglobin 32.6 pg (26-34); Mean Corpuscular Volume 99.8 fl (80-100); Mean Platelet Volume 11.2 fl (7.4-10.4); Monocytes Absolute Auto 0.5 K/mm3 (0.1-0.6); Monocytes Percent Auto 8.1 % (2.6-8.5); Neutrophils Absolute Auto 3.5 K/mm3 (1.3-6.7); Neutrophils Percent Auto 59.3 % (45.5-73.1); Platelet Count Result 203 k/mm3 (150-375); Red Blood Count 4.27 M/mm3 (4.2-5.4); Red Cell Distribution Width 11.9 % (11.5-14.5); White Blood Count 5.9 K/mm3 (4.5-10.0)
--- OUTSIDE RECORDS SUMMARY | 2024-12-01 12:19 | XMS_ITS | Continuity of Care Document ---
Author Organization [facility] Address [id number] [place] [address] [address] [place] [address] Phone Care Team Providers Care Human Resources Services Specialist Name Role Phone Tobias Rainey MD, MD Unavailable Unavailable Procedures Procedure Date POSTOP FOLLOW-UP VISIT CATARACT SURG W/IOL, 1 STAGE OFFICE/OUTPATIENT VISIT, [facility] OPHTHALMIC BIOMETRY OPHTHALMIC BIOMETRY DILATED EXAM RIGHT EYE DILATED EXAM LEFT EYE Advance Directives Directive Yes / No Effective Date File Name No Information Encounters Encounter Description Practice Location Reason(s) For Visit Diagnoses Date Provider Providers Copied on Encounter Ophthalmology [facility], [id number] [place] [address], [place], [place], [id number], tel:[phone] [facility] No Information Rosalee Collado. [address], [place], [place], [id number] , [place]. tel:[phone] Referring Provider: Tobias Nicole, [address], [place], [address] . tel:[phone] [facility], [address] [place] [address] [address], [place], [place], [id number], [place] tel:[phone] [facility] No Information 5 Brigid Collado. [address], [place], [place], [id number] , [place]. [phone] Referring Provider: Tobias Nicole, [address], [place], [address] . tel:[phone] OFFICE/OUTPA TIENT VISIT, [facility], [address], [place], [place], [id number], tel:[phone] [facility] No Information 5 Brigid Collado. [address], [place], [place], [id number] , [place]. tel:[phone] Referring Provider: Tobias Rainey MD P, [address], [place], [address] . tel:[phone] Family History Family Member Type Diagnosis Age At Onset No Information Payers Payer name Insurance type Covered democrat ID Authoriza tion(s) No Information Social History Type Description Quantity Date Captured Comments Sex Female Smoking Status No Information Chief Complaint And Reason For Visit No Information Reason For Referral Reason For Referral No Information History Of Present Illness Encounter Date Complaint History Of Prese nt Illness No Information Functional Status Date Functional Assessmen t No Information Instructions Date Instruction Additional Infor mation No Information Assessments Type Assessment Date No Information Patient Care Teams Name Effective Dates (start - stop) Status Members No Information
--- OUTSIDE RECORDS SUMMARY | 2024-12-01 12:19 | XMS_ITS | Clinical Summary ---
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 Gender Identity Not on file Sexual Orientation Not on file Plan of Treatment Health Maintenance Due Date Last Done Comments DEXA Bone Density 1935 Hepatitis C Virus (HCV) Screening 1935 TdaP Immunization 1935 Pneumococcal Immunization (5 0+ years) (1 of 1 - PCV) 1986 Zoster Immunization (1 of 2) 1986 Respiratory Syncytial Virus (RSV) Immunization (Adult) (1 - 1-dose 75+ series) 10/10/2011 Influenza Immunization (#1) 2024 SARS-COV-2 Immunization ( season) 2024 Hepatitis B Immunization Aged Out No longer eligible based on patient's age to complete this topic Meningococcal Immunization (ACWY) Aged Out No longer eligible based on patient's age to complete this topic Rotavirus Immunization Aged Out No lo nger eligible based on patient's age to complete this topic
[2024-12-01 21:10] LABS: Alanine Aminotransferase 26 U/L (6-35); Albumin Level 4.4 g/dL (3.5-5.1); Alkaline Phosphatase 70 U/L (38-126); Anion Gap 10 mmol/L (4-12); Aspartate Amino Transferase 33 U/L (14-36); Bilirubin,Total 0.5 mg/dL (0.2-1.3); Blood Urea Nitrogen 20 mg/dL (7-17); Calcium 9.7 mg/dL (8.4-10.2); Carbon Dioxide 26 mmol/L (22-30); Chloride 102 mmol/L (98-107); Cholesterol 198 mg/dL (0-200); Estimated Glomerular Filt Rate 50; Glucose 94 mg/dL (65-110); HDL Direct 82 mg/dL; Potassium 3.7 mmol/L (3.4-5.0); Sodium 138 mmol/L (137-145); Triglycerides 167 mg/dL (<150)
[2024-12-01 21:21] LABS: LDL Cholesterol Direct 70 mg/dL
== END 2024-12-01 11:47 | disposition home or self-care (01) ==
PROVIDERS: PCP Internal Medicine; Visit Provider Nurse Practitioner
DX: E78.2 Mixed hyperlipidemia (principal); E03.9 Hypothyroidism, unspecified; Z13.29 Encounter for screening for other suspected endocrine disorder; I10 Essential (primary) hypertension
CPT/HCPCS: 36415; 80053; 80061; 84443; 85025